=== PATIENT | female | born 1985 | race African-American/Black ===

== ENCOUNTER 2021-04-27 01:10 | Emergency (ER) | payer BC ==
[~2021-04-27] VITALS: Ht 154.9 cm; Wt 56.4 kg
[~2021-04-27 01:10] MED LIST: NALT50TA4 PO; SERT50TA29 PO
[2021-04-27] MEDS ORDERED: AMOX875T2 (01:25)
[2021-04-27 01:59] LABS: HEMATOCRIT 39.2 % (36.0-47.0); HEMOGLOBIN 13.1 g/dl (12.0-15.5); MEAN CORPUSCULAR HEMOGLOBIN 32.7 pg (27.0-33.0); MEAN CORPUSCULAR HGB CONC 33.4 g/dl (32.0-36.5); MEAN CORPUSCULAR VOLUME 97.8 fl (80.0-96.0); PLATELET COUNT, AUTOMATED 335 10^3/uL (150-450); RED BLOOD COUNT 4.01 10^6/uL (4.00-5.40); WHITE BLOOD COUNT 6.8 10^3/uL (4.0-10.0)
[2021-04-27 02:24] LABS: AMPHETAMINES LEVEL URINE NEGATIVE (NEGATIVE); BARBITURATES URINE NEGATIVE (NEGATIVE); BENZODIAZEPINES URINE NEGATIVE (NEGATIVE); CANNABINOIDS URINE NEGATIVE (NEGATIVE); COCAINE METABOLITE URINE NEGATIVE (NEGATIVE); METHADONE URINE NEGATIVE (NEGATIVE); OPIATES URINE NEGATIVE (NEGATIVE); PHENCYCLIDINE URINE NEGATIVE (NEGATIVE)
[2021-04-27 03:16] LABS: ACETAMINOPHEN LEVEL < 2.0 UG/ML (10.0-30.0); ALBUMIN 3.7 GM/DL (3.2-5.2); ALT/SGPT 21 U/L (12-78); BILIRUBIN,DIRECT 0.2 MG/DL (0.0-0.2); BILIRUBIN,TOTAL 0.3 MG/DL (0.2-1.0); BLOOD UREA NITROGEN 6 MG/DL (7-18); CALCIUM LEVEL 8.9 MG/DL (8.5-10.1); CARBON DIOXIDE LEVEL 22 MEQ/L (21-32); CHLORIDE LEVEL 114 MEQ/L (98-107); CREATININE FOR GFR 0.68 MG/DL (0.55-1.30); ETHYL ALCOHOL (ETHANOL) 0.274 % (0.000-0.010); GLOMERULAR FILTRATION RATE > 60.0 (>60); GLUCOSE, FASTING 111 MG/DL (70-100); HCG, SERUM QUANTITATIVE < 1.0 MIU/ML; POTASSIUM SERUM 3.7 MEQ/L (3.5-5.1); SALICYLATE LEVEL < 1.7 MG/DL (5.0-30.0); SODIUM LEVEL 143 MEQ/L (136-145)
[2021-04-27] MEDS ORDERED: LORazepam 2 MG TAB PO PRN (12:35)
[2021-04-27] MEDS: THIAMINE 100 MG TAB PO SCH ×2 (13:15→21:00)
[2021-04-27] MEDS: MULTIVITAMINS/MINERALS THERAP 1 TAB PO SCH (13:15)
[2021-04-27] MEDS: FOLIC ACID 1 MG TAB PO SCH (13:15)
[2021-04-27] MEDS ORDERED: IBUP1TAB6 PO (23:53)
[2021-04-27] MEDS ORDERED: NALT50TA4 PO (23:53)
[2021-04-27] MEDS ORDERED: AMOX875T2 PO (23:53)
[2021-04-27] MEDS ORDERED: SERT50TA29 PO (23:53)
[2021-04-27] MEDS ORDERED: HOME MED LIST COMPLETE! XX SCH (23:55)
[2021-04-28] MEDS: THIAMINE 100 MG TAB PO SCH (09:00)
[2021-04-28] MEDS: MULTIVITAMINS/MINERALS THERAP 1 TAB PO SCH (09:00)
[2021-04-28] MEDS: FOLIC ACID 1 MG TAB PO SCH (09:00)
[2021-04-28 16:03] VITALS: BP 130/83
== END 2021-04-28 16:05 ==
LOC: M ED 01:10
DX: R45.851 Suicidal ideations (principal); F32.A Depression, unspecified; Z91.51 Personal history of suicidal behavior